=== PATIENT | female | born 1990 | race Caucasian/White ===

== ENCOUNTER 2017-03-22 13:32 | Emergency (ER) | payer OTHER ==
[~2017-03-22] VITALS: Wt 69.8 kg
[~2017-03-22 13:32] MED LIST: BACTDS PO; MECL-77 PO; NITR25PO2 MC; ONDA4TAB35 PO
[2017-03-22] MEDS ORDERED: AMOX1TAB10 PO (14:44)
[2017-03-22] MEDS ORDERED: ERYT1OIN6 OP (14:44)
[2017-03-22] MEDS ORDERED: IBUP-1542 PO (14:46)
[2017-03-22] MEDS ORDERED: LIDOCAINE 1% (MPF) 5 ML VIAL ONE (15:00)
--- NOTE | 2017-03-22 16:36 | ERD ---
ER Documentation Chief Complaint Chief Complaint LEFT EYE PAIN AND SWELLING X 3 DAYS HPI 26-year-old female patient with no significant past medical history presents to the ED complaining of left eyelid swelling that started 3 days ago. Reports that her daughter has similar symptoms. Denies wearing any contacts or glasses. Denies any chest pain, shortness of breath, nausea, vomiting, diarrhea. Denies any eye pain, blurred vision, diplopia, photophobia. Denies any facial or head injuries. ROS All systems reviewed and are negative except as per history of present illness. Medications Home Meds Active Scripts Ibuprofen* (Motrin*) 600 Mg Tab, 600 MG PO Q6, #20 TAB Prov:BARI BATRES PA-C 03/22/17 Erythromycin Base (Erythromycin) 1 Gm Oint...g., 1 GM OP Q4 for 7 Days apply 1 cm ribbon to left eye Prov:BARI BATRES PA-C 03/22/17 Amoxicillin/Potassium Clav (Amox-Clav 875-125 mg Tablet) 875-125 mg Tab, 1 TAB PO BID for 7 Days, #14 TAB Prov:BARI BATRES PA-C 03/22/17 Ondansetron Hcl* (Zofran* ODT) 4 mg -ODT Tab.disper, 4 MG PO Q4H Y for NAUSEA AND OR VOMITING for 7 Days, TAB Prov:MICHAEL SONI NP 02/24/15 Meclizine Hcl* (Meclizine Hcl*) 25 Mg Tablet, 25 MG PO TID for 7 Days, TAB Prov:MICHAEL SONI NP 02/24/15 Sulfamethoxazole-Trimethoprim* (Bactrim* DS) 800-160 Mg Tab, 1 TAB PO BID for 3 Days, TAB Prov:MICHAEL SONI NP 02/24/15 Nitrofurantoin (Nitrofurantoin) 100 Gm Powder, 100 GM MC BID for 7 Days Prov:MICHAEL SONI NP 02/24/15 Allergies Allergies: Coded Allergies: No Known Drug Allergy (Verified Allergy, Unknown, 02/24/15) PMhx/Soc Medical and Surgical Hx: pt denies Medical Hx, pt denies Surgical Hx History of Surgery: No Anesthesia Reaction: No Hx Neurological Disorder: No Hx Respiratory Disorders: No Hx Cardiac Disorders: No Hx Psychiatric Problems: No Hx Miscellaneous Medical Probl: No Hx Alcohol Use: No Hx Substance Use: No Hx Tobacco Use: No Smoking Status: Never smoker Physical Exam Vitals Vital Signs Date Time Temp Pulse Resp B/P Pulse Ox O2 Delivery O2 Flow Rate FiO2 03/22/17 13:34 98.1 79 18 116/65 99 Physical Exam Const: Tby-[id number]-tylvtzayr, well-nourished. In no acute distress. Head: Atraumatic, normocephalic Eyes: Normal Conjunctiva without injection. No purulent discharge. PERRLA. EOMI. Significant erythematous left eye lid swelling. ENT: Normal external ear. Ear canal without erythema. Tympanic membrane pearly hodge without effusion or bulging. Nasal canal clear with normal turbinates. Moist oropharynx without tonsillar exudates. Non-erythematous pharynx. Uvula midline. No drooling. No trismus. Neck: No cervical midline tenderness. Full range of motion. No meningismus. No cervical lymphadenopathy. No JVD. Resp: Clear to auscultation bilaterally. No wheezing, rhonchi, rales, or crackles. No accessory muscle use. No retractions. Cardio: Regular rate and rhythm. No murmurs, rubs or gallops. Skin: Normal skin turgor. No petechiae or rashes Back: No midline tenderness. No CVA tenderness. Ext: No cyanosis, or edema. Distal pulses intact bilaterally. Neur: Awake and alert. Normal gait. Normal coordination. Cranial Nerves II- VII intact. Normal finger to nose. Muscle strength 5/5. Sensation intact. Psych: Normal Mood and Affect Results 24 hrs Current Medications Medications (Trade) Dose Ordered Sig/Chris Route PRN Reason Start Time Stop Time Status Last Admin Dose Admin Lidocaine (Xylocaine 1% (Mpf)) 5 ml STK-MED ONCE .ROUTE 03/22/17 15:00 03/22/17 15:01 DC Procedures/MDM 26-year-old female patient with no significant past medical history presents to the ED complaining of left eye swelling that started 3 days ago. Patient is afebrile and nontoxic-appearing. Patient has normal vital signs. Differentials include blepharitis versus preseptal cellulitis. Patient's ocular symptoms have stabilized while they have been evaluated in the department and are appropriate for outpatient work up. Low suspicion for ruptured globe, retinal detachment, periorbital cellulitis, acute angle closure glaucoma, deep space infection, iritis, traumatic hyphema, conjunctivitis, subconjunctival hemorrhage, corneal abrasion, corneal ulcer, pterygium, hypopyon , hordeolum, chalazion, or other emergent conditions. Discharge medications: Erythromycin ointment, Ibuprofen, Augmentin Follow up with primary care physician in 1-2 days. Instructed patient to return to the ED sooner for any worsening symptoms. Patient's questions were answered. Patient understood and agreed with discharge plan. Patient discharged stable. Departure Diagnosis: Primary Impression: Eye swelling, left Condition: Stable Patient Instructions: What Is Blepharitis?, Davina-Orbital Cellulitis Referrals: [facility] YOU HAVE RECEIVED A MEDICAL SCREENING EXAM AND THE RESULTS INDICATE THAT YOU DO NOT HAVE A CONDITION THAT REQUIRES URGENT TREATMENT IN THE EMERGENCY DEPARTMENT. FURTHER EVALUATION AND TREATMENT OF YOUR CONDITION CAN WAIT UNTIL YOU ARE SEEN IN YOUR DOCTORS OFFICE WITHIN THE NEXT 1-2 DAYS. IT IS YOUR RESPONSIBILITY TO MAKE AN APPOINTMENT FOR FOLOW-UP CARE. IF YOU HAVE A PRIMARY DOCTOR --you should call your primary doctor and schedule an appointment IF YOU DO NOT HAVE A PRIMARY DOCTOR YOU CAN CALL OUR PHYSICIAN REFERRAL HOTLINE AT IF YOU CAN NOT AFFORD TO SEE A PHYSICIAN YOU CAN CHOSE FROM THE FOLLOWING [facility] [id number] [facility]. [facility] [address] [facility] [address] [facility] [facility] [address] [facility] [facility] [address]. [facility]. [address] [facility]. [facility] YOU HAVE RECEIVED A MEDICAL SCREENING EXAM AND THE RESULTS INDICATE THAT YOU DO NOT HAVE A CONDITION THAT REQUIRES URGENT TREATMENT IN THE EMERGENCY DEPARTMENT. FURTHER EVALUATION AND TREATMENT OF YOUR CONDITION CAN WAIT UNTIL YOU ARE SEEN IN YOUR DOCTORS OFFICE WITHIN THE NEXT 1-2 DAYS. IT IS YOUR RESPONSIBILITY TO MAKE AN APPOINTMENT FOR FOLOW-UP CARE. IF YOU HAVE A PRIMARY DOCTOR --you should call your primary doctor and schedule and appointment IF YOU DO NOT HAVE A PRIMARY DOCTOR YOU CAN CALL OUR PHYSICIAN REFERRAL HOTLINE AT . IF YOU CAN NOT AFFORD TO SEE A PHYSICIAN YOU CAN CHOSE FROM THE FOLLOWING [facility] INSTITUTIONS[facility] [address] [place] [address] [facility] [address] [place] [address] [facility] + [facility] [address] [place] [address] [facility] Additional Instructions: Call your primary care doctor TOMORROW for an appointment during the next 2-3 days to recheck your eye.See the doctor sooner or return here if your condition worsens before your appointment time. BARI BATRES PA-C Mar 22, 2017 16:36
== END 2017-03-22 16:05 | disposition home or self-care (01) ==
LOC: FTE 13:32
DX: H57.8 Other specified disorders of eye and adnexa (principal)
CPT/HCPCS: Z7502; Z7610; 99284

== ENCOUNTER 2017-11-04 15:08 | Emergency (ER) | END 2017-11-04 18:36 | disposition home or self-care (01) ==

== ENCOUNTER 2017-12-02 22:58 | Emergency (ER) | END 2017-12-03 05:20 | disposition home or self-care (01) ==